=== PATIENT | female | born 1950 | race Hispanic/Latino ===

== ENCOUNTER 2019-05-10 16:28 | Inpatient (IN) | payer MEDICARE, OTHER ==
[2019-05-10] MEDS ORDERED: FUROSEMIDE 40 MG/4 ML INJ IV ONE (17:00)
[2019-05-10] MEDS: IPRATROPIUM 0.02% NEBU 2.5 ML IH SCH (19:59)
[2019-05-10] MEDS: BUDESONIDE 0.5 MG/2 ML NEBU IH SCH (19:59)
[2019-05-10] MEDS: ARFORMOTEROL 15 MCG/2 ML NEBU IH SCH (20:07)
[2019-05-10] MEDS ORDERED: ACETAMINOPHEN 325 MG TAB PO PRN (20:16)
--- NOTE | 2019-05-10 21:03 | History and Physical Report ---
History of Present Illness Date of examination: 05/10/19 Date of admission: 05/10/19 16:46 Chief complaint: Increased SOB History of present illness: 69-year-old female who was a former smoker with history of COPD, chronic respiratory failure, diastolic heart failure, arthritis, hypertension who presents to [facility] as a direct admit with complaints of increased SOB and increased home oxygen use. Pt states that she is unable to walk up two steps without becoming SOB and needing to gasp for air. Pt normally uses 2L NC nocturnally and prn daytime use. She states that she has been using her oxygen more during the days. Pt does not have home O2 monitor but states that she can feel when her oxygen is low, because she gets really winded and unable to talk or ambulate. Of note pt was admitted to [facility] in February and March of this year for COPD exacerbation and acute on chronic respiratory failure, and bilateral PNA. She was a prednisone taper but unable to tolerate tapering dose below 30mg. Will admit for further evaluation and treatment. Past History Past Medical History: arthritis, COPD, heart failure, hypertension, other (chronic respiratory failure with prn daytime use and continuous nocturnal use) Past Surgical History: No surgical history Social history: lives with family, other (former smoker (50 year history); occasional exposure to secondhand smoke) Family history: no significant family history Medications and Allergies Allergies Allergy/AdvReac Type Severity Reaction Status Date / Time No Known Allergies Allergy Verified 05/10/19 16:46 Active Meds: Active Medications Acetaminophen (Tylenol) 650 mg PO Q4H PRN PRN Reason: Pain, Mild (1-3), fever>100.5 Amlodipine Besylate (Amlodipine) 10 mg PO QDAY [facility] Arformoterol Tartrate (Brovana Nebu) 15 mcg IH Q12HRT [facility] Last Admin: 05/10/19 20:07 Dose: 15 mcg Documented by: Aspirin (Baby Aspirin) 81 mg PO QDAY [facility] Atorvastatin Calcium (Atorvastatin) 10 mg PO QHS [facility] Budesonide (Pulmicort) 0.5 mg IH Q12HRT [facility] Last Admin: 05/10/19 19:59 Dose: 0.5 mg Documented by: Buspirone HCl (Buspar) 7.5 mg PO BID [facility] Ipratropium [place] (Atrovent) 0.5 mg IH Q4HRT [facility] Last Admin: 05/10/19 19:59 Dose: 0.5 mg Documented by: Methylprednisolone Sodium Succinate (Solu-Medrol) 60 mg IV Q6HR [facility] Pantoprazole Sodium (Protonix) 20 mg PO QDAY [facility] Review of Systems All systems: negative Cardiovascular: shortness of breath, dyspnea on exertion Respiratory: cough (occasional nonproductive), shortness of breath, dyspnea on exertion, home oxygen (with increase usage) Exam - Physical Exam Narrative exam: Physical exam General appearance: Present: No acute distress, alert and oriented 3, less than, well-developed, well-nourished, adult female - EENT Eyes: Present: PERRL, EOM intact ENT: hearing intact, normal dentition - Neck Neck: Present: supple, normal ROM - Respiratory Respiratory effort: Non-labored; on supplemental oxygen Respiratory: Diminished throughout with prolonged expiratory phase - Cardiovascular Heart rate: 104 (bpm) Rhythm: Sinus tachycardia Heart Sounds: Present: S1 & S2. Absent: rub, click - Extremities Extremities: no ischemia, pulses intact, - Peripheral Assessment Peripheral Pulses: within normal limits - Abdominal General gastrointestinal: soft, non-tender, normal bowel sounds - Integumentary Integumentary: Present: warm, dry - Musculoskeletal Musculoskeletal: Able to move all extremities -Neurological Neurological: CN II-XII intact - Psychiatric Psychiatric: Appropriate for situation ,cooperative - Constitutional Vitals: Temp Pulse Resp BP Pulse Ox 98.4 F 104 H 118 H 148/83 96 05/10/19 18:59 05/10/19 20:55 05/10/19 20:09 05/10/19 18:59 05/10/19 20:55 Results - Labs Labs: Laboratory Last Values NT-Pro-B Natriuret Pep 448.5 pg/mL (0-900) 05/10/19 19:33 Assessment and Plan Assessment and plan: 69-year-old female who was a former smoker with history of COPD, chronic respiratory failure, diastolic heart failure, arthritis, hypertension who presents to [facility] as a direct admit with complaints of increased SOB and increased home oxygen use. At the time of my examination pt is sitting up in bed watching TV on 2L NC. She is able to talk in complete sentences and maintain conversation with out s/s of distress. On auscultation diminished throughout with poor air movement, and prolonged expiratory phase. Acute exacerbation COPD -Increased shortness of breath -Scheduled Pulmicort and Atrovent, albuterol when necessary -IV systemic steroids -Pulmonary consulted Chronic hypoxic respiratory failure -CXR pending -Baseline home oxygen requirements of 2L nocturnally and prn daytime use -Currently on supplemental 2L NC continuously -Monitor saturations -Continue supplemental oxygen wean as tolerated HTN -Monitor BP -Resume home hypertensive meds Hx Diastolic HF DVT PPX -On Heparin Advance Directives: No VTE prophylaxis?: Chemical Plan of care discussed with patient/family: Yes
[2019-05-10] MEDS ORDERED: ONDANSETRON 4 MG/2 ML INJ IV PRN (21:06)
[2019-05-10] MEDS: DOCUSATE SODIUM 100 MG CAP PO SCH (22:37)
[2019-05-10] MEDS: HEPARIN 5,000 UNIT/1 ML VIAL SUB-Q SCH (22:37)
[2019-05-10] MEDS: busPIRone 5 MG TAB PO SCH (22:38)
[2019-05-10] MEDS: methylPREDNISolone Sod Succinate 125 MG/2 ML INJ IV SCH ×2 (22:45→23:24)
--- NOTE | 2019-05-10 23:29 | XRay Report ---
CHEST 2 VIEWS INDICATION / CLINICAL INFORMATION: sob. COMPARISON: None available. FINDINGS: SUPPORT DEVICES: None. HEART / MEDIASTINUM: No significant abnormality. LUNGS / PLEURA: There is COPD changes seen at the right lung clear. There is patchy density at the le ft lung base likely minimal pneumonia. No edema or effusions. No nodules, masses or adenopathy. No pn eumothorax. ADDITIONAL FINDINGS: No significant additional findings. IMPRESSION: 1. Minimal left basilar consolidation. Signer Name: Erik James MD Signed: 05/10/2019 11:25 PM Workstation Name: [id number]
[2019-05-11] MEDS: IPRATROPIUM 0.02% NEBU 2.5 ML IH SCH ×5 (04:03→20:45)
[2019-05-11] MEDS: methylPREDNISolone Sod Succinate 40 MG/1 ML INJ IV SCH ×3 (05:55→23:47)
[2019-05-11 05:56] LABS: Hematocrit 37.1 % (30.3-42.9); Hemoglobin 12.1 gm/dl (10.1-14.3); Mean Corpuscular HGB Conc 33 % (30-34); Mean Corpuscular Volume 97 fl (79-97); Platelet Count 303 K/mm3 (140-440); Red Blood Count 3.82 M/mm3 (3.65-5.03); Red Cell Distribution Width 16.1 % (13.2-15.2)
[2019-05-11 06:25] LABS: Albumin 3.7 g/dL (3.9-5); Calcium 9.8 mg/dL (8.4-10.2)
[2019-05-11 06:43] LABS: Basophils % (Manual) 0 % (0.0-1.8); Platelet Estimate Consistent w Auto; Total Cells Counted 100
[2019-05-11] MEDS ORDERED: INSULIN REGULAR, HUMAN 100 UNITS/1 ML IV STA (07:11)
[2019-05-11] MEDS ORDERED: DEXTROSE 50% IN WATER (25GM) 50 ML VIAL IV STA (07:11)
[2019-05-11] MEDS: SODIUM POLYSTYRENE 15 GM/60 ML ORAL LIQD PO SCH ×2 (07:35→14:33)
[2019-05-11] MEDS: busPIRone 5 MG TAB PO SCH ×2 (10:30→22:12)
[2019-05-11] MEDS: HEPARIN 5,000 UNIT/1 ML VIAL SUB-Q SCH ×2 (10:31→22:13)
[2019-05-11] MEDS: PANTOPRAZOLE 20 MG TAB PO SCH (10:32)
[2019-05-11] MEDS: BUDESONIDE 0.5 MG/2 ML NEBU IH SCH ×2 (11:22→20:45)
[2019-05-11] MEDS: ARFORMOTEROL 15 MCG/2 ML NEBU IH SCH ×2 (11:23→20:46)
--- NOTE | 2019-05-11 11:54 | Progress Note ---
Assessment and Plan Assessment and plan: 69-year-old female who was a former smoker with history of COPD, chronic respiratory failure, diastolic heart failure, arthritis, hypertension who [facility] with complaints of increased SOB and increased home oxygen use. At the time of my examination pt is sitting up in bed watching TV on 2L NC. She is able to talk in complete sentences and maintain conversation with out s/s of distress. On auscultation diminished throughout with poor air movement, and prolonged expiratory phase. Acute exacerbation COPD -Increased shortness of breath -Scheduled Pulmicort and Atrovent, albuterol when necessary -IV systemic steroids -Pulmonary consulted, following Chronic hypoxic respiratory failure -CXR pending -Baseline home oxygen requirements of 2L nocturnally and prn daytime use -Currently on supplemental 2L NC continuously -Monitor saturations -Continue supplemental oxygen wean as tolerated Hyperkalemia Kayexalate ordered Repeat BMP today HTN -Monitor BP -Resume home hypertensive meds Chronic diastolic CHF Lasix iv DVT PPX -On Heparin History Interval history: Shortness or breath Hospitalist Physical - Physical exam Narrative exam: Gen: Not in acute distress, lying in bed HEENT: Normocephalic, atraumatic Neck: supple, no JVD Heart: S1 and S2 reg, no murmurs, rubs or gallop Lungs: Bilateral rhonchi, wheezing Abd: soft, non tender , non distended, normal BS Ext: No edema, no clubbing, no cyanosis Neuro: Awake,alert, oriented, moves all ext - Constitutional Vitals: Temp Pulse Resp BP Pulse Ox 98.3 F 114 H 20 127/73 92 05/11/19 07:19 05/11/19 10:00 05/11/19 07:19 05/11/19 07:19 05/11/19 07:19 Results - Labs CBC & Chem 7: 05/11/19 05:35 05/11/19 16:11 Labs: Laboratory Last Values WBC 6.3 K/mm3 (4.5-11.0) 05/11/19 05:35 RBC 3.82 M/mm3 (3.65-5.03) 05/11/19 05:35 Hgb 12.1 gm/dl (10.1-14.3) 05/11/19 05:35 Hct 37.1 % (30.3-42.9) 05/11/19 05:35 MCV 97 fl (79-97) 05/11/19 05:35 MCH 32 pg (28-32) 05/11/19 05:35 MCHC 33 % (30-34) 05/11/19 05:35 RDW 16.1 % (13.2-15.2) H 05/11/19 05:35 Plt Count 303 K/mm3 (140-440) 05/11/19 05:35 Add Manual Diff Complete 05/11/19 05:35 Total Counted 100 05/11/19 05:35 Seg Neutrophils % Nurses[employer] Association Counselor 05/11/19 05:35 Seg Neuts % (Manual) 92.0 % (40.0-70.0) H 05/11/19 05:35 Band Neutrophils % 0 % 05/11/19 05:35 Lymphocytes % (Manual) 5.0 % (13.4-35.0) L 05/11/19 05:35 Reactive Lymphs % (Man) 0 % 05/11/19 05:35 Monocytes % (Manual) 2.0 % (0.0-7.3) 05/11/19 05:35 Eosinophils % (Manual) 1.0 % (0.0-4.3) 05/11/19 05:35 Basophils % (Manual) 0 % (0.0-1.8) 05/11/19 05:35 Metamyelocytes % 0 % 05/11/19 05:35 Myelocytes % 0 % 05/11/19 05:35 Promyelocytes % 0 % 05/11/19 05:35 Blast Cells % 0 % 05/11/19 05:35 Nucleated RBC % Not Reportable 05/11/19 05:35 Seg Neutrophils # Man 5.8 K/mm3 (1.8-7.7) 05/11/19 05:35 Band Neutrophils # 0.0 K/mm3 05/11/19 05:35 Lymphocytes # (Manual) 0.3 K/mm3 (1.2-5.4) L 05/11/19 05:35 Abs React Lymphs (Man) 0.0 K/mm3 05/11/19 05:35 Monocytes # (Manual) 0.1 K/mm3 (0.0-0.8) 05/11/19 05:35 Eosinophils # (Manual) 0.1 K/mm3 (0.0-0.4) 05/11/19 05:35 Basophils # (Manual) 0.0 K/mm3 (0.0-0.1) 05/11/19 05:35 Metamyelocytes # 0.0 K/mm3 05/11/19 05:35 Myelocytes # 0.0 K/mm3 05/11/19 05:35 Promyelocytes # 0.0 K/mm3 05/11/19 05:35 Blast Cells # 0.0 K/mm3 05/11/19 05:35 WBC Morphology Not Reportable 05/11/19 05:35 Hypersegmented Neuts Not Reportable 05/11/19 05:35 Hyposegmented Neuts Not Reportable 05/11/19 05:35 Hypogranular Neuts Not Reportable 05/11/19 05:35 Smudge Cells Not Reportable 05/11/19 05:35 Toxic Granulation Not Reportable 05/11/19 05:35 Toxic Vacuolation Not Reportable 05/11/19 05:35 Dohle Bodies Not Reportable 05/11/19 05:35 Pelger-Huet Anomaly Not Reportable 05/11/19 05:35 Tonie Rods Not Reportable 05/11/19 05:35 Platelet Estimate Consistent w auto 05/11/19 05:35 Clumped Platelets Not Reportable 05/11/19 05:35 Plt Clumps, EDTA Not Reportable 05/11/19 05:35 Large Platelets Not Reportable 05/11/19 05:35 Giant Platelets Not Reportable 05/11/19 05:35 Platelet Satelliting Not Reportable 05/11/19 05:35 Plt Morphology Comment Not Reportable 05/11/19 05:35 RBC Morphology Not Reportable 05/11/19 05:35 Dimorphic RBCs Not Reportable 05/11/19 05:35 Polychromasia Not Reportable 05/11/19 05:35 Hypochromasia Not Reportable 05/11/19 05:35 Poikilocytosis Not Reportable 05/11/19 05:35 Anisocytosis Not Reportable 05/11/19 05:35 Microcytosis Not Reportable 05/11/19 05:35 Macrocytosis Not Reportable 05/11/19 05:35 Spherocytes Not Reportable 05/11/19 05:35 Pappenheimer Bodies Not Reportable 05/11/19 05:35 Sickle Cells Not Reportable 05/11/19 05:35 Target Cells Not Reportable 05/11/19 05:35 Tear Drop Cells Not Reportable 05/11/19 05:35 Ovalocytes Not Reportable 05/11/19 05:35 Helmet Cells Not Reportable 05/11/19 05:35 [place] Bodies Not Reportable 05/11/19 05:35 [place] Rings Not Reportable 05/11/19 05:35 [place] Cells Not Reportable 05/11/19 05:35 Bite Cells Not Reportable 05/11/19 05:35 Crenated Cell Not Reportable 05/11/19 05:35 Elliptocytes Not Reportable 05/11/19 05:35 Acanthocytes (Spur) Not Reportable 05/11/19 05:35 Rouleaux Not Reportable 05/11/19 05:35 Hemoglobin C Crystals Not Reportable 05/11/19 05:35 Schistocytes Not Reportable 05/11/19 05:35 Malaria parasites Not Reportable 05/11/19 05:35 Otto Bodies Not Reportable 05/11/19 05:35 Hem Pathologist Commnt No 05/11/19 05:35 Sodium 141 mmol/L (137-145) 05/11/19 05:35 Potassium 5.5 mmol/L (3.6-5.0) H 05/11/19 05:35 Chloride 102.9 mmol/L (98-107) 05/11/19 05:35 Carbon Dioxide 22 mmol/L (22-30) 05/11/19 05:35 Anion Gap 22 mmol/L 05/11/19 05:35 BUN 25 mg/dL (7-17) H 05/11/19 05:35 Creatinine 1.1 mg/dL (0.7-1.2) 05/11/19 05:35 Estimated GFR 50 ml/min 05/11/19 05:35 BUN/Creatinine Ratio 23 % 05/11/19 05:35 Glucose 138 mg/dL (65-100) H 05/11/19 05:35 Calcium 9.8 mg/dL (8.4-10.2) 05/11/19 05:35 Total Bilirubin 0.20 mg/dL (0.1-1.2) 05/11/19 05:35 AST 17 units/L (5-40) 05/11/19 05:35 ALT 13 units/L (7-56) 05/11/19 05:35 Alkaline Phosphatase 86 units/L (35-129) 05/11/19 05:35 NT-Pro-B Natriuret Pep 448.5 pg/mL (0-900) 05/10/19 19:33 Total Protein 7.3 g/dL (6.3-8.2) 05/11/19 05:35 Albumin 3.7 g/dL (3.9-5) L 05/11/19 05:35 Albumin/Globulin Ratio 1.0 % 05/11/19 05:35 Active Medications - Current Medications Current Medications: Generic Name Dose Route Start Last Admin Trade Name Freq PRN Reason Stop Dose Admin Acetaminophen 650 mg 05/10/19 20:16 Tylenol PO Q4H PRN Pain, Mild (1-3), fever>100.5 Amlodipine Besylate 10 mg 05/11/19 10:00 Amlodipine PO QDAY [facility] Arformoterol Tartrate 15 mcg 05/10/19 20:00 05/11/19 11:23 Brovana Nebu IH 15 mcg Q12HRT [facility] Administration Aspirin 81 mg 05/11/19 10:00 Baby Aspirin PO QDAY [facility] Atorvastatin Calcium 10 mg 05/10/19 22:00 05/10/19 22:37 Atorvastatin PO 10 mg QHS [facility] Administration Budesonide 0.5 mg 05/10/19 20:00 05/11/19 11:22 Pulmicort IH 0.5 mg Q12HRT [facility] Administration Buspirone HCl 7.5 mg 05/10/19 22:00 05/11/19 10:30 Buspar PO 7.5 mg BID [facility] Administration Docusate Sodium 100 mg 05/10/19 22:00 05/10/19 22:37 Colace PO 100 mg BID [facility] Administration Heparin Sodium (Porcine) 5,000 unit 05/10/19 22:00 05/11/19 10:31 Heparin SUB-Q 5,000 unit Q12HR [facility] Administration Ipratropium [place] 0.5 mg 05/10/19 20:00 05/11/19 11:22 Atrovent IH 0.5 mg Q4HRT [facility] Administration Methylprednisolone Sodium Succinate 60 mg 05/11/19 06:00 05/11/19 05:55 Solu-Medrol IV 60 mg Q6HR [facility] Administration Ondansetron HCl 4 mg 05/10/19 21:06 Zofran IV Q8H PRN Nausea And Vomiting Pantoprazole Sodium 20 mg 05/11/19 10:00 05/11/19 10:32 Protonix PO Not Given QDAY [facility] Sodium Chloride 10 ml 05/10/19 22:00 05/11/19 10:32 Sodium Chloride Flush Syringe 10 Ml IV 10 ml BID [facility] Administration Sodium Chloride 10 ml 05/10/19 21:06 Sodium Chloride Flush Syringe 10 Ml IV PRN PRN LINE FLUSH Sodium Polystyrene Sulfonate 30 gm 05/11/19 08:00 05/11/19 07:35 Kionex PO 05/11/19 12:01 30 gm Q6HR [facility] Administration Nutrition/Malnutrition Assess - Dietary Evaluation Nutrition/Malnutrition Findings: Nutrition Notes Start: 05/11/19 09:52 Freq: Status: Active Protocol: Document 05/11/19 09:52 (Rec: 05/11/19 10:15 [email or web address]) Co-Sign 05/11/19 09:52 LM Nutrition Notes Need for Assessment generated from: supervisor anodizing Initial or Follow up Brief Note Current Diagnosis COPD,Hypertension,Heart Failure,Respiratory Failure Current Diet Cardiac Subjective/Other Information RN consult for skin risk. Carlos score 19. Pt reports eating normally. Nutrition Intervention Revisit per MD consult or patient Sign Off request:
--- NOTE | 2019-05-11 12:42 | Consultation ---
History of Present Illness Consult date: 05/11/19 Requesting physician: DENIA GOLDEN Reason for consult: COPD History of present illness: 69 y/o, clinic patient of mine, whom I asked for a direct admit on yesterday for hypoxic respiratory failure and COPD exacerbation. STarted on High dose IV steroids and lasix therapy. This am much improved but feels dehydrated for diarrhea caused by kayexalate to help with hyperkalemia. Currently on oxygen with good sats. Daughter not at bedside. Past History Past Medical History: arthritis, COPD, heart failure, hypertension, other (chronic respiratory failure with prn daytime use and continuous nocturnal use) Past Surgical History: No surgical history Social history: lives with family, other (former smoker (50 year history); occa sional exposure to secondhand smoke) Family history: no significant family history Medications and Allergies Allergies Allergy/AdvReac Type Severity Reaction Status Date / Time No Known Allergies Allergy Verified 05/10/19 16:46 Active Meds: Active Medications Acetaminophen (Tylenol) 650 mg PO Q4H PRN PRN Reason: Pain, Mild (1-3), fever>100.5 Amlodipine Besylate (Amlodipine) 10 mg PO QDAY [facility] Arformoterol Tartrate (Brovana Nebu) 15 mcg IH Q12HRT [facility] Last Admin: 05/11/19 11:23 Dose: 15 mcg Documented by: Aspirin (Baby Aspirin) 81 mg PO QDAY [facility] Atorvastatin Calcium (Atorvastatin) 10 mg PO QHS [facility] Last Admin: 05/10/19 22:37 Dose: 10 mg Documented by: Budesonide (Pulmicort) 0.5 mg IH Q12HRT [facility] Last Admin: 05/11/19 11:22 Dose: 0.5 mg Documented by: Buspirone HCl (Buspar) 7.5 mg PO BID [facility] Last Admin: 05/11/19 10:30 Dose: 7.5 mg Documented by: Docusate Sodium (Colace) 100 mg PO BID [facility] Last Admin: 05/10/19 22:37 Dose: 100 mg Documented by: Heparin Sodium (Porcine) (Heparin) 5,000 unit SUB-Q Q12HR [facility] Last Admin: 05/11/19 10:31 Dose: 5,000 unit Documented by: Ipratropium [place] (Atrovent) 0.5 mg IH Q4HRT [facility] Last Admin: 05/11/19 11:22 Dose: 0.5 mg Documented by: Methylprednisolone Sodium Succinate (Solu-Medrol) 60 mg IV Q6HR [facility] Last Admin: 05/11/19 05:55 Dose: 60 mg Documented by: Ondansetron HCl (Zofran) 4 mg IV Q8H PRN PRN Reason: Nausea And Vomiting Pantoprazole Sodium (Protonix) 20 mg PO QDAY [facility] Last Admin: 05/11/19 10:32 Dose: Not Given Documented by: Sodium Chloride (Sodium Chloride Flush Syringe 10 Ml) 10 ml IV BID [facility] Last Admin: 05/11/19 10:32 Dose: 10 ml Documented by: Sodium Chloride (Sodium Chloride Flush Syringe 10 Ml) 10 ml IV PRN PRN PRN Reason: LINE FLUSH Review of Systems All systems: negative Physical Examination Vital signs: Vital Signs Temp Pulse Resp BP 98 F 104 H 18 127/64 05/10/19 17:46 05/10/19 17:46 05/10/19 17:46 05/10/19 17:46 General appearance: no acute distress, alert Eyes: non-icteric ENT: oropharynx moist Neck: supple Effort: normal Ascultation: Bilateral: diminished breath sounds Percussion: Bilateral: not dull Tactile fremitus: Bilateral: normal Cardiovascular: regular rate and rhythm Gastrointestinal: normoactive bowel sounds, soft, non-tender Integumentary: normal Extremities: no cyanosis, no edema Gait: normal gait normal mental status mood appropriate Results - Laboratory Findings CBC and BMP: 05/11/19 05:35 05/11/19 05:35 Abnormal lab findings: Abnormal Labs 05/11/19 05/11/19 05:35 05:35 RDW 16.1 H Seg Neuts % (Manual) 92.0 H Lymphocytes % (Manual) 5.0 L Lymphocytes # (Manual) 0.3 L Potassium 5.5 H BUN 25 H Glucose 138 H Albumin 3.7 L - Diagnostic Findings Chest x-ray: image reviewed Assessment and Plan 69 y/o female with COPD exacerbation and hypoxic respiratory failure. 1. Continue IV steroids through tomorrow 2. Will give an additional dose of lasix later this evening once diarrhea has slowed down 3. Will repeat K at about 14:00 today 4. continue supplemental O2
[2019-05-11] MEDS: DOCUSATE SODIUM 100 MG CAP PO SCH ×2 (14:26→22:12)
[2019-05-11] MEDS: amLODIPine 10 MG TAB PO SCH (14:28)
[2019-05-11] MEDS: ASPIRIN 81 MG TAB CHEW PO SCH (14:28)
[2019-05-11] MEDS ORDERED: FUROSEMIDE 40 MG/4 ML INJ IV ONE (16:00)
[2019-05-11] MEDS ORDERED: DEXTROSE 50% IN WATER (25GM) 50 ML SYRINGE IV PRN (18:46)
[2019-05-11] MEDS: INSULIN LISPRO 100 UNIT/ML SUB-Q SCH ×2 (22:11→22:13)
[2019-05-12] MEDS: IPRATROPIUM 0.02% NEBU 2.5 ML IH SCH ×5 (07:40→21:58)
[2019-05-12] MEDS: ARFORMOTEROL 15 MCG/2 ML NEBU IH SCH ×2 (07:40→21:58)
[2019-05-12] MEDS: BUDESONIDE 0.5 MG/2 ML NEBU IH SCH ×2 (07:40→21:58)
[2019-05-12] MEDS: methylPREDNISolone Sod Succinate 40 MG/1 ML INJ IV SCH ×4 (07:45→18:57)
[2019-05-12] MEDS: INSULIN LISPRO 100 UNIT/ML SUB-Q SCH ×4 (08:04→21:49)
[2019-05-12] MEDS: DOCUSATE SODIUM 100 MG CAP PO SCH ×2 (10:42→21:48)
[2019-05-12] MEDS: amLODIPine 10 MG TAB PO SCH (10:42)
[2019-05-12] MEDS: ASPIRIN 81 MG TAB CHEW PO SCH (10:42)
[2019-05-12] MEDS: PANTOPRAZOLE 20 MG TAB PO SCH (10:42)
[2019-05-12] MEDS: HEPARIN 5,000 UNIT/1 ML VIAL SUB-Q SCH ×2 (10:44→21:48)
[2019-05-12] MEDS: busPIRone 5 MG TAB PO SCH ×2 (10:46→21:47)
--- NOTE | 2019-05-12 15:14 | Progress Note ---
Assessment and Plan Assessment and plan: Acute exacerbation COPD -Increased shortness of breath -Scheduled Pulmicort and Atrovent, albuterol when necessary -IV systemic steroids -Pulmonary consulted, following -Feels better, less SOB Acute on Chronic hypoxic respiratory failure -Baseline home oxygen requirements of 2L nocturnally and prn daytime use -Currently on supplemental 2L NC continuously -Monitor saturations -Continue supplemental oxygen wean as tolerated Hyperkalemia resolved HTN -Monitor BP -Resume home hypertensive meds Chronic diastolic CHF Lasix iv DVT PPX -On Heparin Hopefully dc home tomorrow History Interval history: Less Shortness or breath Hospitalist Physical - Physical exam Narrative exam: Gen: Not in acute distress, lying in bed HEENT: Normocephalic, atraumatic Neck: supple, no JVD Heart: S1 and S2 reg, no murmurs, rubs or gallop Lungs: Bilateral rhonchi, wheezing Abd: soft, non tender , non distended, normal BS Ext: No edema, no clubbing, no cyanosis Neuro: Awake,alert, oriented, moves all ext - Constitutional Vitals: Temp Pulse Resp BP Pulse Ox 97.7 F 90 18 138/76 90 05/12/19 13:49 05/12/19 14:58 05/12/19 14:58 05/12/19 13:49 05/12/19 13:49 Results - Labs CBC & Chem 7: 05/11/19 05:35 05/11/19 16:11 Labs: Laboratory Last Values WBC 6.3 K/mm3 (4.5-11.0) 05/11/19 05:35 RBC 3.82 M/mm3 (3.65-5.03) 05/11/19 05:35 Hgb 12.1 gm/dl (10.1-14.3) 05/11/19 05:35 Hct 37.1 % (30.3-42.9) 05/11/19 05:35 MCV 97 fl (79-97) 05/11/19 05:35 MCH 32 pg (28-32) 05/11/19 05:35 MCHC 33 % (30-34) 05/11/19 05:35 RDW 16.1 % (13.2-15.2) H 05/11/19 05:35 Plt Count 303 K/mm3 (140-440) 05/11/19 05:35 Add Manual Diff Complete 05/11/19 05:35 Total Counted 100 05/11/19 05:35 Seg Neutrophils % [employer] 05/11/19 05:35 Seg Neuts % (Manual) 92.0 % (40.0-70.0) H 05/11/19 05:35 Band Neutrophils % 0 % 05/11/19 05:35 Lymphocytes % (Manual) 5.0 % (13.4-35.0) L 05/11/19 05:35 Reactive Lymphs % (Man) 0 % 05/11/19 05:35 Monocytes % (Manual) 2.0 % (0.0-7.3) 05/11/19 05:35 Eosinophils % (Manual) 1.0 % (0.0-4.3) 05/11/19 05:35 Basophils % (Manual) 0 % (0.0-1.8) 05/11/19 05:35 Metamyelocytes % 0 % 05/11/19 05:35 Myelocytes % 0 % 05/11/19 05:35 Promyelocytes % 0 % 05/11/19 05:35 Blast Cells % 0 % 05/11/19 05:35 Nucleated RBC % Not Reportable 05/11/19 05:35 Seg Neutrophils # Man 5.8 K/mm3 (1.8-7.7) 05/11/19 05:35 Band Neutrophils # 0.0 K/mm3 05/11/19 05:35 Lymphocytes # (Manual) 0.3 K/mm3 (1.2-5.4) L 05/11/19 05:35 Abs React Lymphs (Man) 0.0 K/mm3 05/11/19 05:35 Monocytes # (Manual) 0.1 K/mm3 (0.0-0.8) 05/11/19 05:35 Eosinophils # (Manual) 0.1 K/mm3 (0.0-0.4) 05/11/19 05:35 Basophils # (Manual) 0.0 K/mm3 (0.0-0.1) 05/11/19 05:35 Metamyelocytes # 0.0 K/mm3 05/11/19 05:35 Myelocytes # 0.0 K/mm3 05/11/19 05:35 Promyelocytes # 0.0 K/mm3 05/11/19 05:35 Blast Cells # 0.0 K/mm3 05/11/19 05:35 WBC Morphology Not Reportable 05/11/19 05:35 Hypersegmented Neuts Not Reportable 05/11/19 05:35 Hyposegmented Neuts Not Reportable 05/11/19 05:35 Hypogranular Neuts Not Reportable 05/11/19 05:35 Smudge Cells Not Reportable 05/11/19 05:35 Toxic Granulation Not Reportable 05/11/19 05:35 Toxic Vacuolation Not Reportable 05/11/19 05:35 Dohle Bodies Not Reportable 05/11/19 05:35 Pelger-Huet Anomaly Not Reportable 05/11/19 05:35 Tonie Rods Not Reportable 05/11/19 05:35 Platelet Estimate Consistent w auto 05/11/19 05:35 Clumped Platelets Not Reportable 05/11/19 05:35 Plt Clumps, EDTA Not Reportable 05/11/19 05:35 Large Platelets Not Reportable 05/11/19 05:35 Giant Platelets Not Reportable 05/11/19 05:35 Platelet Satelliting Not Reportable 05/11/19 05:35 Plt Morphology Comment Not Reportable 05/11/19 05:35 RBC Morphology Not Reportable 05/11/19 05:35 Dimorphic RBCs Not Reportable 05/11/19 05:35 Polychromasia Not Reportable 05/11/19 05:35 Hypochromasia Not Reportable 05/11/19 05:35 Poikilocytosis Not Reportable 05/11/19 05:35 Anisocytosis Not Reportable 05/11/19 05:35 Microcytosis Not Reportable 05/11/19 05:35 Macrocytosis Not Reportable 05/11/19 05:35 Spherocytes Not Reportable 05/11/19 05:35 Pappenheimer Bodies Not Reportable 05/11/19 05:35 Sickle Cells Not Reportable 05/11/19 05:35 Target Cells Not Reportable 05/11/19 05:35 Tear Drop Cells Not Reportable 05/11/19 05:35 Ovalocytes Not Reportable 05/11/19 05:35 Helmet Cells Not Reportable 05/11/19 05:35 Shahid-Mart[place]dale Bodies Not Reportable 05/11/19 05:35 Redkey Rings Not Reportable 05/11/19 05:35 Alex Cells Not Reportable 05/11/19 05:35 Bite Cells Not Reportable 05/11/19 05:35 Crenated Cell Not Reportable 05/11/19 05:35 Elliptocytes Not Reportable 05/11/19 05:35 Acanthocytes (Spur) Not Reportable 05/11/19 05:35 Rouleaux Not Reportable 05/11/19 05:35 Hemoglobin C Crystals Not Reportable 05/11/19 05:35 Schistocytes Not Reportable 05/11/19 05:35 Malaria parasites Not Reportable 05/11/19 05:35 Otto Bodies Not Reportable 05/11/19 05:35 Hem Pathologist Commnt No 05/11/19 05:35 Sodium 142 mmol/L (137-145) 05/11/19 16:11 Potassium 4.0 mmol/L (3.6-5.0) D 05/11/19 16:11 Chloride 101.0 mmol/L (98-107) 05/11/19 16:11 Carbon Dioxide 20 mmol/L (22-30) L 05/11/19 16:11 Anion Gap 25 mmol/L 05/11/19 16:11 BUN 31 mg/dL (7-17) H 05/11/19 16:11 Creatinine 1.3 mg/dL (0.7-1.2) H 05/11/19 16:11 Estimated GFR 41 ml/min 05/11/19 16:11 BUN/Creatinine Ratio 24 % 05/11/19 16:11 Glucose 236 mg/dL (65-100) H 05/11/19 16:11 POC Glucose 126 (70-105) H 05/12/19 08:08 Hemoglobin A1c 5.9 % (4-6) 05/12/19 04:16 Calcium 9.0 mg/dL (8.4-10.2) 05/11/19 16:11 Total Bilirubin 0.20 mg/dL (0.1-1.2) 05/11/19 05:35 AST 17 units/L (5-40) 05/11/19 05:35 ALT 13 units/L (7-56) 05/11/19 05:35 Alkaline Phosphatase 86 units/L (35-129) 05/11/19 05:35 NT-Pro-B Natriuret Pep 448.5 pg/mL (0-900) 05/10/19 19:33 Total Protein 7.3 g/dL (6.3-8.2) 05/11/19 05:35 Albumin 3.7 g/dL (3.9-5) L 05/11/19 05:35 Albumin/Globulin Ratio 1.0 % 05/11/19 05:35 Active Medications - Current Medications Current Medications: Generic Name Dose Route Start Last Admin Trade Name Freq PRN Reason Stop Dose Admin Acetaminophen 650 mg 05/10/19 20:16 Tylenol PO Q4H PRN Pain, Mild (1-3), fever>100.5 Amlodipine Besylate 10 mg 05/11/19 10:00 05/12/19 10:42 Amlodipine PO 10 mg QDAY VALERY Administration Arformoterol Tartrate 15 mcg 05/10/19 20:00 05/12/19 07:40 Brovana Nebu IH 15 mcg Q12HRT VALERY Administration Aspirin 81 mg 05/11/19 10:00 05/12/19 10:42 Baby Aspirin PO 81 mg QDAY VALERY Administration Atorvastatin Calcium 10 mg 05/10/19 22:00 05/11/19 22:12 Atorvastatin PO 10 mg QHS VALERY Administration Budesonide 0.5 mg 05/10/19 20:00 05/12/19 07:40 Pulmicort IH 0.5 mg Q12HRT VALERY Administration Buspirone HCl 7.5 mg 05/10/19 22:00 05/12/19 10:46 Buspar PO 7.5 mg BID VALERY Administration Dextrose 50 ml 05/11/19 18:46 D50w (25gm) Syringe IV Q30MIN PRN Hypoglycemia Protocol Docusate Sodium 100 mg 05/10/19 22:00 05/12/19 10:42 Colace PO 100 mg BID VALERY Administration Heparin Sodium (Porcine) 5,000 unit 05/10/19 22:00 05/12/19 10:44 Heparin SUB-Q 5,000 unit Q12HR VALERY Administration Insulin Human Lispro 0 unit 05/11/19 22:00 05/11/19 22:13 Humalog SUB-Q Not Given QHS [facility] Protocol Insulin Human Lispro 0 unit 05/11/19 18:50 05/12/19 13:45 Humalog SUB-Q Not Given AC [facility] Protocol Ipratropium Barton 0.5 mg 05/12/19 10:00 05/12/19 14:50 Atrovent IH 0.5 mg QIDRT VALERY Administration Methylprednisolone Sodium Succinate 60 mg 05/11/19 06:00 05/12/19 07:45 Solu-Medrol IV 60 mg Q6HR VALERY Administration Ondansetron HCl 4 mg 05/10/19 21:06 Zofran IV Q8H PRN Nausea And Vomiting Pantoprazole Sodium 20 mg 05/11/19 10:00 05/12/19 10:42 Protonix PO 20 mg QDAY VALERY Administration Sodium Chloride 10 ml 05/10/19 22:00 05/11/19 22:13 Sodium Chloride Flush Syringe 10 Ml IV 10 ml BID VALERY Administration Sodium Chloride 10 ml 05/10/19 21:06 Sodium Chloride Flush Syringe 10 Ml IV PRN PRN LINE FLUSH Nutrition/Malnutrition Assess - Dietary Evaluation Nutrition/Malnutrition Findings: Nutrition Notes Start: 05/11/19 09:52 Freq: Status: Active Protocol: Document 05/11/19 09:52 TONY (Rec: 05/11/19 10:15 [email or web address]) Co-Sign 05/11/19 09:52 LM Nutrition Notes Need for Assessment generated from: appeals referee Initial or Follow up Brief Note Current Diagnosis COPD,Hypertension,Heart Failure,Respiratory Failure Current Diet Cardiac Subjective/Other Information RN consult for skin risk. Carlos score 19. Pt reports eating normally. Nutrition Intervention Revisit per MD consult or patient Sign Off request:
[2019-05-12 19:49] LABS: Calcium 8.5 mg/dL (8.4-10.2)
[2019-05-12] MEDS: methylPREDNISolone Sod Succinate 125 MG/2 ML INJ IV SCH (23:05)
[2019-05-13 05:44] LABS: Calcium 8.8 mg/dL (8.4-10.2)
[2019-05-13] MEDS: methylPREDNISolone Sod Succinate 125 MG/2 ML INJ IV SCH (05:51)
[2019-05-13] MEDS: INSULIN LISPRO 100 UNIT/ML SUB-Q SCH ×2 (07:54→11:58)
[2019-05-13 07:59] VITALS: BP 153/80
--- NOTE | 2019-05-13 08:58 | Progress Note ---
Assessment and Plan 69 y/o female with COPD exacerbation and hypoxic respiratory failure. 1. Ok for discharge to home. 2. Please send out on lasix 20mg daily 3. Please send out on potassium 10meq daily 4. Patient should wear oxygen 15/12 5. Prednisone 60 daily for 4 days, 40 daily for 4 days, 20 daily for 4 days, 10 daily for 4 days then stop. Follow up with Avinash in Clinic Subjective Date of service: 05/13/19 Interval history: No acute events. Walked well on yesterday x2. Feels good and is ready to go home. Renal function back to normal. Objective Vital Signs - 12hr 05/12/19 05/12/19 05/13/19 21:59 22:00 00:25 Temperature Pulse Rate 82 Pulse Rate [ 93 H From Monitor] Pulse Rate [ 98 H Posterior Bilateral Throughout] Respiratory 18 Rate Respiratory 20 Rate [Posterior Bilateral Throughout] Blood Pressure O2 Sat by Pulse 94 92 Oximetry 05/13/19 05/13/19 01:53 07:20 Temperature 97.6 F 98.2 F Pulse Rate 102 H 80 Pulse Rate [ From Monitor] Pulse Rate [ Posterior Bilateral Throughout] Respiratory 18 20 Rate Respiratory Rate [Posterior Bilateral Throughout] Blood Pressure 144/85 153/80 O2 Sat by Pulse 94 96 Oximetry Constitutional: no acute distress, alert Eyes: non-icteric ENT: oropharynx moist Neck: supple Effort: normal Ascultation: Bilateral: diminished breath sounds Percussion: Bilateral: not dull Tactile fremitus: Bilateral: normal Cardiovascular: regular rate and rhythm Gastrointestinal: normoactive bowel sounds, soft, non-tender Integumentary: normal Extremities: no cyanosis, no edema Neurologic: normal mental status Psychiatric: mood appropriate CBC and BMP: 05/11/19 05:35 05/13/19 05:02 Abnormal lab findings: Abnormal Labs 05/11/19 05/11/19 05/11/19 05:35 05:35 16:11 RDW 16.1 H Seg Neuts % (Manual) 92.0 H Lymphocytes % (Manual) 5.0 L Lymphocytes # (Manual) 0.3 L Potassium 5.5 H Carbon Dioxide 20 L BUN 25 H 31 H Creatinine 1.3 H Glucose 138 H 236 H POC Glucose Albumin 3.7 L 05/11/19 05/11/19 05/12/19 16:32 22:20 08:08 RDW Seg Neuts % (Manual) Lymphocytes % (Manual) Lymphocytes # (Manual) Potassium Carbon Dioxide BUN Creatinine Glucose POC Glucose 216 H 144 H 126 H Albumin 05/12/19 05/12/19 05/12/19 18:55 19:08 21:35 RDW Seg Neuts % (Manual) Lymphocytes % (Manual) Lymphocytes # (Manual) Potassium Carbon Dioxide BUN 40 H Creatinine 1.5 H Glucose 200 H POC Glucose 204 H 147 H Albumin 05/13/19 05/13/19 05:02 07:30 RDW Seg Neuts % (Manual) Lymphocytes % (Manual) Lymphocytes # (Manual) Potassium Carbon Dioxide BUN 35 H Creatinine Glucose 155 H POC Glucose 134 H Albumin
[2019-05-13] MEDS: busPIRone 5 MG TAB PO SCH (09:20)
[2019-05-13] MEDS: ASPIRIN 81 MG TAB CHEW PO SCH (09:21)
[2019-05-13] MEDS: amLODIPine 10 MG TAB PO SCH (09:21)
[2019-05-13] MEDS: PANTOPRAZOLE 20 MG TAB PO SCH (09:22)
[2019-05-13] MEDS: HEPARIN 5,000 UNIT/1 ML VIAL SUB-Q SCH (09:22)
[2019-05-13] MEDS: DOCUSATE SODIUM 100 MG CAP PO SCH (09:22)
[2019-05-13] MEDS: IPRATROPIUM 0.02% NEBU 2.5 ML IH SCH ×2 (09:53→14:50)
[2019-05-13] MEDS: BUDESONIDE 0.5 MG/2 ML NEBU IH SCH (09:53)
[2019-05-13] MEDS: ARFORMOTEROL 15 MCG/2 ML NEBU IH SCH (09:53)
--- NOTE | 2019-05-13 10:08 | Discharge Summary ---
Providers - Providers Date of Admission: 05/10/19 16:46 Date of discharge: 05/13/19 Attending physician: ANITA MORGAN 05/10/19 16:54 Consult to Physician [CONS] Routine Comment: Consulting Provider: SHAISTA LING Physician Instructions: CONSULT WAS CALLED TO . Reason For Exam: RESPIRATORY FAILURE W/ HYPOXIA, COPD EXACERBATION Primary care physician: ANODE ADJUSTER Hospitalization Condition: Fair Hospital course: Patient is 69-year-old female who was a former smoker with history of COPD, chronic respiratory failure, diastolic heart failure, arthritis, hypertension who presents to [facility] as a direct admit with complaints of increased SOB and increased home oxygen use. Pt states that she is unable to walk up two steps without becoming SOB and needing to gasp for air. Pt normally uses 2L NC nocturnally and prn daytime use. She states that she has been using her oxygen more during the days. Pt does not have home O2 monitor but states that she can feel when her oxygen is low, because she gets really winded and unable to talk or ambulate. Of note pt was admitted to [facility] in February and March of this year for COPD exacerbation and acute on chronic respiratory failure, and bilateral PNA. She was a prednisone taper but unable to tolerate tapering dose below 30mg. She was started on solumedrol iv and admitted. Patient was seen by Pulmonology Acute exacerbation COPD. Treated with steroids, nebs. Acute on Chronic hypoxic respiratory failure -Baseline home oxygen requirements of 2L nocturnally and prn daytime use -patient seen by Pulmonology Hyperkalemia resolved DAIN due to vasomotor nephropathy HTN. Resumed home anti-hypertensive meds Chronic diastolic CHF Trearted with lasix iv Total time spent on discharge, 33 mins Disposition: [id number]-01 TO HOME OR SELFCARE - Discharge Diagnoses (1) DAIN (acute kidney injury) Status: Acute (2) Vasomotor nephropathy Status: Acute (3) COPD exacerbation Status: Acute (4) Acute and chronic respiratory failure Status: Acute (5) HTN (hypertension) Status: Acute Core Measure Documentation - Palliative Care Palliative Care/ Comfort Measures: Not Applicable - Core Measures Any of the following diagnoses?: none Exam - Constitutional Vitals: Temp Pulse Resp BP Pulse Ox 98.2 F 94 H 20 153/80 96 05/13/19 07:20 05/13/19 09:53 05/13/19 09:53 05/13/19 09:21 05/13/19 09:53 Plan Activity: no restrictions Diet: low fat, low cholesterol, low salt Plan of Treatment: 1.Follow up with PCP in 1 week. 2.Follow up with Dr. Ling in 1 week 3.Continue home Oxygen at 2l/min Follow up with: PRIMARY CARE, [Primary Care Provider] - 7 Days Prescriptions: predniSONE [Deltasone] 60 mg PO QDAY 4 Days tab predniSONE [Deltasone] 40 mg PO QDAY 4 Days tab predniSONE [Deltasone] 20 mg PO QDAY 4 Days tab predniSONE [Deltasone] 10 mg PO QDAY 4 Days tab Potassium Chloride [K-Dur] 10 meq PO QDAY #14 tablet Furosemide [Lasix] 20 mg PO QDAY #30 tablet Famotidine [Pepcid] 20 mg PO BID #60 tablet
== END 2019-05-13 12:00 | disposition home or self-care (01) | DRG 189 ==
LOC: UNDOADMIN 16:28 → 2B-ACE 16:28
PROVIDERS: ADMIT Internal Medicine; ATTEND Internal Medicine
DX: J96.21 Acute and chronic respiratory failure with hypoxia (principal); N17.0 Acute kidney failure with tubular necrosis; J44.1 Chronic obstructive pulmonary disease with (acute) exacerbation; I50.22 Chronic systolic (congestive) heart failure; I11.0 Hypertensive heart disease with heart failure; E87.5 Hyperkalemia; Z87.891 Personal history of nicotine dependence
CPT/HCPCS: 36415; 71046; 80048; 80053; 82962; 83036; 83880; 85007; 85025; 87116; 94640; 94760; G0378; A9270-GY; J1644; J1815; J1940; J2920; J2930